=== PATIENT | female | born 1990 | race Caucasian/White ===

== ENCOUNTER 2017-03-13 08:39 | Emergency (ER) | payer SELFPAY ==
[~2017-03-13] VITALS: Ht 170.2 cm; Wt 90.5 kg
[2017-03-13 08:45] VITALS: Ht 170.2 cm; Wt 90.5 kg
[2017-03-13] MEDS ORDERED: FLUORESCEIN STRIP LEFT EYE ONE (09:30)
[2017-03-13] MEDS ORDERED: TETRACAINE 0.5% 4 ML OPH LEFT EYE ONE (09:30)
[2017-03-13] MEDS ORDERED: CEPH-443 PO (09:41)
[2017-03-13] MEDS ORDERED: OFLO5DRO46 LEFT EYE (09:41)
--- NOTE | 2017-03-13 09:50 | ERD ---
ER Documentation Chief Complaint Date/Time DATE: 03/13/17 TIME: 09:46 Chief Complaint LEFT EYE PAIN/SWELLING THIS MORNING, NO INJURY HPI 26-year-old female comes in with left eye swelling and itching with drainage starting this morning. She states that she wears daily contacts, states that she had some yellow drainage, swelling to her left eye. She reports that she normally has a history of allergic rhinitis and took a Benadryl as well as a Claritin and her symptoms have improved. She applied warm compress to the area and the swelling improved. She has no visual deficits, there is some blurring when there is watering to the eye only. She has not had any foreign body entrance. She denies URI symptoms or fevers or chills. ROS All systems reviewed and are negative except as per history of present illness. Medications Home Meds Active Scripts Ofloxacin* (Ocuflox*) 0.3%-5 Ml Ophth Drops, 1 DROP LEFT EYE QID, #1 BOTTLE Prov:IRENE SAMUEL PA-C 03/13/17 Cephalexin* (Keflex*) 500 Mg Capsule, 500 MG PO QID for 7 Days, CAP Prov:IRENE SAMUEL PA-C 03/13/17 PMhx/Soc Medical and Surgical Hx: pt denies Medical Hx, pt denies Surgical Hx History of Surgery: No Anesthesia Reaction: No Hx Neurological Disorder: No Hx Respiratory Disorders: No Hx Cardiac Disorders: No Hx Psychiatric Problems: No Hx Miscellaneous Medical Probl: No Hx Alcohol Use: No Hx Substance Use: No Hx Tobacco Use: No Smoking Status: Never smoker Physical Exam Vitals Vital Signs Date Time Temp Pulse Resp B/P Pulse Ox O2 Delivery O2 Flow Rate FiO2 03/13/17 08:45 97.8 73 18 141/94 99 Physical Exam General: Well-developed, well-nourished. The patient appears in no acute distress. HEENT: Head is normocephalic, atraumatic. No scleral icterus. Eye Exam: Visual Acuity: 20/25, 2024, 20/25 Visual Jeffers: Intact in all four quadrants bilaterally Lac ducts/glands: The upper lid on the left eye is swollen, there is no fluctuance. Lids w/ evertion: Normal, no foreign body Conj/[place]: Clear, negative Fluorescein/Gideon's, there is some injection to the left side, there is conjunctival swelling that is very minimal on the left side. Anterior Chamber: Clear Tonopen readings: 24 and 26 Retina exam: No obvious abnormality Neck: Supple. Nontender. Lungs: Clear to auscultation. Normal air movement. Heart: Regular rate and rhythm. S1 and S2 are normal. No murmurs, gallops, or rubs. Abdomen: Nondistended. Extremities: No clubbing or cyanosis. Moving extremities x 4. No weakness. Neurologic: Alert and oriented 3. No focal deficits. Normal speech and gait. Skin: Normal turgor. No rash or lesions. Results 24 hrs Current Medications Medications (Trade) Dose Ordered Sig/Jie Route PRN Reason Start Time Stop Time Status Last Admin Dose Admin Fluorescein Sodium (Lqfdb-[id number]) 1 strip ONCE ONCE LEFT EYE 03/13/17 09:30 8 09:31 DC Tetracaine HCl (Tetracaine 0.5% Steri-Unit Mohini) 1 drop ONCE ONCE LEFT EYE 03/13/17 09:30 03/13/17 09:31 DC Procedures/MDM 26-year-old female presents with conjunctivitis of the left eye with minimal ecchymosis to the eye. Patient presents with injection with history of wearing contact lenses as well as some drainage and will be covered with eyedrops. She also has some swelling around the eye that is likely secondary to inflammation, she does not have any signs of cathy-orbital, orbital cellulitis, foreign body, ulceration, laceration, herpetic ophthalmicus, keratitis, uveitis. Departure Diagnosis: Primary Impression: Conjunctivitis Condition: Good Patient Instructions: Conjunctivitis, Bacterial Additional Instructions: Call your primary care doctor TOMORROW for an appointment during the next 1-2 days.See the doctor sooner or return here if your condition worsens before your appointment time. IRENE SAMUEL PA-C Mar 13, 2017 09:50
== END 2017-03-13 09:51 | disposition home or self-care (01) ==
LOC: FTE 08:39
DX: H10.32 Unspecified acute conjunctivitis, left eye (principal)
CPT/HCPCS: 99284